=== PATIENT | male | born 1965 | race Caucasian/White ===

== ENCOUNTER → 2021-06-28 16:45 | Outpatient (CLI) | payer OTHER, SELFPAY ==
--- NOTE | ~2021-06-28 | XR_ITS ---
XR knee LT 3V 06/28/2021 17:15 Indication: Left knee pain Procedure: 3 views left knee Comparison: No prior studies for comparison. Findings: Mild osteoarthritis of the left knee. No significant joint effusion. No fracture, subluxati on or dislocation. Impression: 1: Mild osteoarthritis of the left knee. Reviewed, dictated and finalized at location A. JOCKEY Impression: 1: Mild osteoarthritis of the left knee.
== END ==
PROVIDERS: PCP Family Medicine; Visit Provider Nurse Practitioner Family
DX: M17.12 Unilateral primary osteoarthritis, left knee (principal)
CPT/HCPCS: 73562

== ENCOUNTER → 2021-09-29 16:07 | Outpatient (CLI) | payer OTHER, SELFPAY ==
--- NOTE | ~2021-09-29 | XR_ITS ---
EXAMINATION: XR chest 2V EXAM DATE: 09/29/2021 16:18 INDICATION: R05.3 - Chronic cough TECHNIQUE: Frontal and lateral projections of the chest obtained and reviewed. There is no prior chidi dy for comparison. FINDINGS: Mild hyperinflation. The lungs are clear. There are no pleural effusions. The cardiomedi astinal silhouette is within normal limits. There is no pneumothorax suspected. The bones and soft tissues are unremarkable. IMPRESSION: Mild hyperinflation. Reviewed, dictated and finalized at location B. [employer] IMPRESSION: Mild hyperinflation.
== END ==
PROVIDERS: PCP Family Medicine; Visit Provider Nurse Practitioner Family
DX: R05.3 Chronic cough (principal); R91.8 Other nonspecific abnormal finding of lung field
CPT/HCPCS: 71046